=== PATIENT | female | born 1990 | race Caucasian/White ===

== ENCOUNTER 2023-04-11 20:56 | Emergency (ER) | payer MEDICAID, SELFPAY ==
[2023-04-11 20:59] VITALS: BP 147/115; PULSE 170; RESP 16; O2SAT 95
--- NOTE | 2023-04-11 21:07 | ECG_ITS ---
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
--- NOTE | 2023-04-11 21:08 | ED_ITS ---
HPI - General Adult General Chief complaint: Overdose Stated complaint: OVERDOSE Time Seen by Provider: 04/11/23 21:03 History of Present Illness HPI narrative: 32-year-old female presents because she was quite anxious not acting herself. Her father who is an EMT and 911 and the police brought her. She reports taking a THC coming about 6 PM. She doesn't know how she got here. She doesn't seem to have any physical complaints except that she's not sure what happened. She doesn't complain of a headache or fever. Related Data Allergies Allergy/AdvReac Type Severity Reaction Status Date / Time sumatriptan [From Imitrex] Allergy Verified 04/11/23 21:01 Review of Systems ROS Narrative A ten point review of systems is negative except as noted above. Exam Narrative Exam Narrative: Nurses note and vital signs reviewed and patient is not hypoxic. General: The patient appears well and in no apparent distress. Patient is resting comfortably on cart. Skin: Warm, dry, no pallor noted. There is no rash noted. Head: Normocephalic, atraumatic Eye: Normal conjunctiva, no drainage Ears, Nose, Mouth, and Throat: oral mucosa is moist. Nares patent. Cardiovascular: Regular Rate and Rhythm, tachycardic Respiratory: Patient is in no distress, no accessory muscle use, lungs are clear to auscultation, no wheezing, rales or rhonchi Back: non-tender GI: after nontender Musculoskeletal: The patient has no evidence of calf tenderness, no pitting edema, symmetrical pulses noted bilaterally Neurological: awake and alert. She knows her name and her age and where she is and what year it is Psychiatric: Cooperative, appears anxious Constitutional Vital Signs, click to edit/add: Last Vital Signs Pulse 170 H 04/11/23 20:59 Resp 16 04/11/23 20:59 BP 147/115 H 04/11/23 20:59 Pulse Ox 95 04/11/23 20:59 Course Vital Signs Vital signs: Vital Signs Pulse Rate 170 H 04/11/23 20:59 Respiratory Rate 16 04/11/23 20:59 Blood Pressure 147/115 H 04/11/23 20:59 Pulse Oximetry 95 04/11/23 20:59 Pulse Rate 170 H 04/11/23 20:59 Respiratory Rate 16 04/11/23 20:59 Blood Pressure 147/115 H 04/11/23 20:59 Pulse Oximetry 95 04/11/23 20:59 Medical Decision Making MDM Narrative Medical decision making narrative: The patient presented with anxiety following THC ingestion. She was given IV fluids and observed here and she is mentating normally. She is now asymptomatic and she is being taken home in the care of her parents. Both the patient and her parents are comfortable with this plan. Differential Diagnosis Differential Diagnosis: medication overdosage, THC ingestion, anxiety Lab Data Lab results reviewed: Yes I reviewed the patient's lab results Labs: Lab Results 04/11/23 Range/Units 21:15 WBC 13.7 H (4.0-11.0) 10^3/uL RBC 4.11 L (4.20-5.40) 10^6/uL Hgb 13.5 (12.0-16.0) g/dL Hct 39.1 (36.0-48.0) % MCV 95.1 (81.0-99.0) fL MCH 32.8 (26.7-34.0) pg MCHC 34.5 (29.9-35.2) g/dL RDW 11.8 (11.0-15.0) % Plt Count 259 (150-450) 10^3/uL MPV 11.9 (9.5-13.5) fL Neut % (Auto) 59.4 (43.0-75.0) % Lymph % (Auto) 29.0 (20.5-60.0) % Weakley % (Auto) 7.7 (1.7-12.0) % Eos % (Auto) 2.9 (0.9-7.0) % Baso % (Auto) 0.7 (0.2-2.0) % Neut # (Auto) 8.1 H (1.4-6.5) 10^3/uL Lymph # (Auto) 4.0 H (1.2-3.8) 10^3/uL Weakley # (Auto) 1.1 H (0.3-0.8) 10^3/uL Eos # (Auto) 0.4 (0.0-0.7) 10^3/uL Baso # (Auto) 0.1 (0.0-0.1) 10^3/uL Abs Immat Gran (auto) 0.04 H (0.00-0.03) 10^3/uL Imm/Tot Granulo (auto) 0.3 (0.0-0.5) % Sodium 137 (136-145) mmol/L Potassium 4.2 (3.5-5.1) mmol/L Chloride 102 (98-107) mmol/L Carbon Dioxide 24.2 (21.0-32.0) mmol/L Anion Gap 15.0 BUN 16.0 (7.0-18.0) mg/dL Creatinine 0.79 (0.55-1.02) mg/dL Est GFR ( Amer) >60 (>=60) Est GFR (Non-Af Amer) >60 (>=60) BUN/Creatinine Ratio 20.3 Glucose 106 (74-106) mg/dL Calcium 9.0 (8.5-10.1) mg/dL Ethanol Quant <3 mg/dL ECG Data Attestation: I personally reviewed and interpreted this ECG as follows: (EKG on my interpretation shows sinus tachycardia) Discharge Plan Discharge Chief Complaint: Overdose Clinical Impression: Drug overdose Patient Disposition: Home, Self-Care Time of Disposition Decision: 01:40 Condition: Good Mode of Transportation: Private Vehicle Instructions: Adult Overdose (ED) Stand Alone Forms: Portal Instructions Referrals: Physician,Non-Staff, MD [Primary Care Provider] - 1 week
[2023-04-11] MEDS: LORAZEPAM 2 MG/ML 1 ML VIAL 1 MG IV ×2 (21:15→21:33)
[2023-04-11 21:25] LABS: Basophils Absolute Auto 0.1 10^3/uL (0.0-0.1); Basophils Percent Auto 0.7 % (0.2-2.0); Eosinophils Absolute Auto 0.4 10^3/uL (0.0-0.7); Eosinophils Percent Auto 2.9 % (0.9-7.0); Hematocrit 39.1 % (36.0-48.0); Hemoglobin 13.5 g/dL (12.0-16.0); Immature Granulocytes Abs Auto 0.04 10^3/uL (0.00-0.03); Immature Granulocytes Pct Auto 0.3 % (0.0-0.5); Mean Corpuscular HGB Conc 34.5 g/dL (29.9-35.2); Mean Corpuscular Hemoglobin 32.8 pg (26.7-34.0); Mean Corpuscular Volume 95.1 fL (81.0-99.0); Mean Platelet Volume 11.9 fL (9.5-13.5); Monocytes Absolute Auto 1.1 10^3/uL (0.3-0.8); Monocytes Percent Auto 7.7 % (1.7-12.0); Neutrophils Absolute Auto 8.1 10^3/uL (1.4-6.5); Neutrophils Percent Auto 59.4 % (43.0-75.0); Platelet Count 259 10^3/uL (150-450); Red Blood Count 4.11 10^6/uL (4.20-5.40); Red Cell Distribution Width 11.8 % (11.0-15.0); White Blood Count 13.7 10^3/uL (4.0-11.0)
[2023-04-11 21:31] VITALS: PULSE 138
[2023-04-11 22:03] LABS: BUN Creatinine Ratio 20.3; Carbon Dioxide 24.2 mmol/L (21.0-32.0); Chloride 102 mmol/L (98-107); Estimated GFR (African America >60 (>=60); Estimated GFR (Non-African Ame >60 (>=60); Ethanol <3 mg/dL; Glucose 106 mg/dL (74-106); Potassium 4.2 mmol/L (3.5-5.1); Sodium 137 mmol/L (136-145)
[2023-04-11] MEDS: 0.9 % SODIUM CHLORIDE 1,000 ML 1000 ML IV (23:14)
[2023-04-12 02:03] VITALS: BP 130/84; PULSE 120; RESP 14; O2SAT 97
== END 2023-04-12 02:05 | disposition home or self-care (01) ==
PROVIDERS: Emergency Provider Emergency Medicine
DX: T50.901A Poisoning by unspecified drugs, medicaments and biological substances, accidental (unintentional), initial encounter (principal)
CPT/HCPCS: 36415; 80048; 80307; 80320; 81001; 85025; 93005; 96374; 99284

== ENCOUNTER 2024-11-15 12:08 | Outpatient (OUT) | payer MEDICAID, SELFPAY ==
[2024-11-15 13:39] LABS: TSH W/ REFLEX FT4 2.155 uIU/mL (0.358-3.740)
[2024-11-16 04:11] LABS: Estradiol 52.8 pg/mL (.); Luteinizing Hormone(LH) 11.1 mIU/mL (.); Progesterone 0.1 ng/mL (.)
== END 2024-11-15 12:09 | disposition home or self-care (01) ==
PROVIDERS: PCP Family Medicine; Visit Provider Family Medicine
DX: R23.2 Flushing (principal)
CPT/HCPCS: 36415; 82670; 83001; 83002; 84144; 84443

== ENCOUNTER 2024-12-27 12:26 | Outpatient (REF) | payer MEDICAID, SELFPAY ==
--- OUTSIDE RECORDS SUMMARY | 2024-12-27 09:00 | XMS_ITS | Encounter Summary ---
Author Organization [facility] Address [address] [facility] [place] [address] Care Team Providers Care Hotel Services Sales Representative Name Role Phone Jessica Winn MD Primary Care Provider [phone] Reason for Visit * Reason Comments Well Women Visit Encounter Details Date Type Department Care Team (Late Contact Info) Description 12/27/2024 9:00 AM EDT Office Visit [facility] [address] [facility] [phone] Wallace Martines, DO [address] [place], [facility] Well woman exam with routine gynecological exam; Vaginal odor Social History Tobacco Use Types Packs/Day Years Used Date Smoking Tobacco: Never Assessed Comments Unknown Sex and Gender Information Value Date Recorded Sex Assigned at Not on file Legal Sex Female 7:19 PM EDT Gender Identity Not on file Sexual Orientation Not on file documented as of this encounter Plan of Treatment Upcoming Encounters Date Type Department Care Team (Late Contact Info) Description 01/04/2026 10:00 AM EDT Office Visit [facility] [address] [place] [phone] Wallace Martines, DO [address] [place] [address] Scheduled Orders Name Type Priority Associated Diagnoses Orde r Schedule Pap Smear Pathology and Cytology Routine Well woman exam with routine gynecological exam Ordered: 12/27/2024 HPV DNA probe, amplified Microbiology Routine Well woman exam with routine gynecological exam Ordered: 12/27/2024 SURESWAB(R) ADVANCED VAGINITIS PLUS, TMA Pathology and Cytology Routine Vaginal odor Ordered: 12/27/2024 CHLAMYDIA TRACHOMATIS (GENITO/STI) Lab Routine Vaginal odor Ordered: 12/27/2024 Neisseria gonorrhea DNA probe, direct Lab Routine Vaginal odor Ordered: 12/27/2024 documented as of this encounter Visit Diagnoses Diagnosis Well woman exam with routine gynecological exam Routine gynecological examination Vaginal odor Unspecified symptom associated with female genital organs documented in this encounter Care Teams Hotel Services Sales Representative Relationship Specialty Start Date End Date Jessica Winn MD [address] [place] [phone] PCP - General Family Medicine 12/27/24 documented as of this encounter
--- OUTSIDE RECORDS SUMMARY | 2024-12-27 12:29 | XMS_ITS | Encounter Summary ---
Author Organization [facility] Address [address] [facility] [place] [address] Care Team Providers Care Launch Commander [employer] Name Role Phone Jessica Winn MD Primary Care Provider [phone] Encounter Details Date Type Department Care Team (Late st Contact Info) Description 11/21/2024 Abstract [facility] [address] [place] [phone] Lindsey Wiseman MA Social History Tobacco Use Types Packs/Day Years Used Date Smoking Tobacco: Never Assessed Comments Unknown Sex and Gender Information Value Date Recorded Sex Assigned at Not on file Legal Sex Female 7:19 PM EDT Gender Identity Not on file Sexual Orientation Not on file documented as of this encounter Plan of Treatment Upcoming Encounters Date Type Department Care Team (Late st Contact Info) Description 01/04/2026 10:00 AM EDT Office Visit [facility] [address] [place] [address] Wallace Martines, [address] [facility] [address] [place], [place] [id number] documented as of this encounter Visit Diagnoses Not on filedocumented in this encounter Care Teams Launch Commander [employer] Relationship Specialty Start Date End Date Jessica Winn MD [address] [place] [phone] PCP - General Family Medicine 12/27/24 documented as of this encounter
--- OUTSIDE RECORDS SUMMARY | 2024-12-27 12:29 | XMS_ITS | Clinical Summary ---
Author Organization [facility] Address [address] [place] [address] Care Team Providers Care Production Artist Name Role Phone Jessica Winn MD Primary Care Provider Allergies Active Allergy Reactions Criticality Noted Date Comments Sumatriptan Hives,Dizziness 12/27/2024 Medications ALPRAZolam (Xanax) 0.5 MG tablet Take 0.5 mg by mouth as needed at bedtime for anxiety Active ibuprofen 800 MG tablet Take 400 mg by mouth every 6 (six) hours if needed for mild pain Active metroNIDAZOLE (Flagyl) 500 MG tabletIndicatio ns:Vaginal odor Take 1 tablet (500 mg) by mouth in the morning and 1 tablet (500 mg) before bedtime. Do all this for 7 days. 14 tablet 12/27/2024 Active Encounters Date Type Department Care Team Description 12/27/2024 9:00 AM EDT Office Visit [facility] [address] [place] [address] Wallace Martines, Well woman exam with routine gynecological exam; Vaginal odor 12/27/2024 Bamboo flowsheet [facility] [place] [address] [place] [address] Wallace Martines DO 12/27/2024 Travel 11/21/2024 Abstract [facility] [place] [address] [place] [address] Lindsey Wiseman MA 11/21/2024 Abstract [facility] [address] [place] [address] Lindsey Wiseman MA from Last 3 Months Social History Tobacco Use Types Packs/Day Years Used Date Smoking Tobacco: Never Assessed Comments Unknown Sex and Gender Information Value Date Recorded Sex Assigned at Not on file Legal Sex Female 7:19 PM EDT Gender Identity Not on file Sexual Orientation Not on file Plan of Treatment Upcoming Encounters Date Type Department Care Team (Late st Contact Info) Description 01/04/2026 10:00 AM EDT Office Visit [facility] [address] [place] [address] Wallace Martines, DO [address] [facility] [place] [address] Insurance [employer] [place]ICA[place] Care Teams Production Artist Relationship Specialty Start Date End Date Jessica Winn MD [address] [facility] [place] [address] PCP - General Family Medicine 12/27/24
--- OUTSIDE RECORDS SUMMARY | 2024-12-27 12:29 | XMS_ITS | Encounter Summary ---
Author Organization [facility] Address [address] [facility] [place] [address] Care Team Providers Care Pediatric Physical Therapy Assistant Name Role Phone Jessica Winn MD Primary Care Provider [phone] Encounter Details Date Type Department Care Team (Latest Contact Info) Description 12/27/2024 Travel Social History Tobacco Use Types Packs/Day Years [...] Office Visit [facility] [address] [place] [phone] Wallace Martines, DO [address] [place], [place] [phone] documented as of this encounter Visit Diagnoses Not on filedocumented in this encounter Care Teams Pediatric Physical Therapy Assistant Relationship Specialty Start Date End Date eJssica Winn MD [address] [facility] [place] [address] PCP - General Family Medicine 12/27/24 documented as of this encounter
--- OUTSIDE RECORDS SUMMARY | 2024-12-27 12:29 | XMS_ITS | Encounter Summary ---
Author Organization [facility] Address [address] [facility] [place] [address] Care Team Providers Care Burning Plant Operator Name Role Phone Jessica Winn MD Primary Care Provider [phone] Encounter Details Date Type Department Care Team (Late st Contact Info) Description 12/27/2024 Bamboo flowsheet [facility] [address] [facility] [place] [phone] Wallace Martines, DO [address] [place], [place] [phone] Social History Tobacco Use Types Packs/Day Years [...] 01/04/2026 10:00 AM EDT Office Visit [facility] [address] [facility] [place] [phone] Wallace Martines, DO [address] [place], [place] [phone] documented as of this encounter Visit Diagnoses Not on filedocumented in this encounter Care Teams Burning Plant Operator Relationship Specialty Start Date End Date Jessica Winn MD [address] [place] [phone] PCP - General Family Medicine 12/27/24 documented as of this encounter
--- OUTSIDE RECORDS SUMMARY | 2024-12-27 12:29 | XMS_ITS | Encounter Summary ---
Author Organization [facility] Address [address] [facility] [place] [address] Care Team Providers Care Inspector [employer] Name Role Phone Jessica Winn MD Primary Care Provider Encounter Details Date Type Department Care Team (Late st Contact Info) Description 11/21/2024 Abstract [facility] [address] [facility] [place] [phone] Lindsey Wiseman MA Social History Tobacco Use [...] 01/04/2026 10:00 AM EDT Office Visit [facility] [address] [place] [address] Wallace Martines, [address] [facility] [address] [place], [place] [phone] documented as of this encounter Visit Diagnoses Not on filedocumented in this encounter Care Teams Inspector [employer] Relationship Specialty Start Date End Date Jessica Winn MD [address] [place] [phone] PCP - General Family Medicine 12/27/24 documented as of this encounter
[2024-12-29 14:09] LABS: Age Gdln ACOG Testing Note (.); HPV Aptima Negative (Negative); IGP, Aptima HPV, rfx 16/18,45 Note (.)
== END 2024-12-27 12:27 | disposition home or self-care (01) ==
LOC: LAB 12:26
PROVIDERS: PCP Family Medicine; Visit Provider Obstetrics & Gynecology
DX: Z01.419 Encounter for gynecological examination (general) (routine) without abnormal findings (principal)
CPT/HCPCS: 87624; 88175